=== PATIENT | female | born 1990 | race Asian ===

== ENCOUNTER 2021-12-12 17:45 | Inpatient (IN) ==
[2021-12-12] MEDS ORDERED: Promethazine INJ(RESTRICTED) 25 MG/ML 1 ml VIAL IV PRN (20:05)
[2021-12-12] MEDS ORDERED: Buffered Lidocaine 1% SYRIN 1 ml INTRADERM ONE (20:05)
[2021-12-12] MEDS ORDERED: Lactated Ringers 1000 ml BAG 1,000 ML IV ONE (20:05)
[2021-12-12] MEDS ORDERED: Nalbuphine 10 MG/ML 1 ML VIAL IV PRN (20:05)
[2021-12-12] MEDS ORDERED: Dinoprostone 10 MG VAG.SUPP VAGINAL ONE (20:05)
[2021-12-12] MEDS ORDERED: Lidocaine 2% JELLY 6 ML Topical TOPICAL ONE (20:08)
[2021-12-12 21:26] LABS: Urine Benzodiazepine Screen None Detected (None Detect); Urine Cannabinoids Screen None Detected (None Detect); Urine Opiates Screen None Detected (None Detect)
[2021-12-13] MEDS ORDERED: Nalbuphine 10 MG/ML 1 ML VIAL IV ONE (05:19)
[2021-12-13] MEDS ORDERED: Promethazine INJ(RESTRICTED) 25 MG/ML 1 ml VIAL IV ONE (05:19)
[2021-12-13 05:41] LABS: ABS Lymphocytes 2.7 10^3/ul (1.0-4.8); ABS Monocytes 0.8 10^3/ul (0-0.8); ABS Neutrophils 7.1 10^3/ul (1.5-7.7); Eosinophil % 0.4 %; Hematocrit 40 % (35-47); Hemoglobin 13.5 g/dL (12.0-16.0); Lymphocyte % 24.9 %; Mean Corpuscular HGB Conc 34 g/dL (31-36); Mean Corpuscular Hemoglobin 32 pg (27-31); Mean Corpuscular Volume 94 fL (80-97); Mean Platelet Volume 8.9 fL (7.4-10.4); Nucleated Red Blood Cells % 0.1; Platelet Count 227 10^3/uL (150-450); Red Blood Count 4.27 10^6 /uL (3.70-4.87); Red Cell Distribution Width 14 % (10-15); White Blood Count 10.7 10^3/uL (3.5-10.8)
[2021-12-13] MEDS ORDERED: Lidocaine 2% JELLY 6 ML Topical TOPICAL PRN (09:41)
[2021-12-13] MEDS ORDERED: Oxytocin in LR 20,000 MILLI.UNIT/1,000 ML BAG IV SCH (11:30)
[2021-12-13] MEDS ORDERED: Lidocaine/Epinephrin 1.5%/200 5 ML AMP INJ ONE (12:40)
[2021-12-13] MEDS ORDERED: OBEPIDURAL (200 ML) 200 ML EPIDURAL ONE (12:40)
[2021-12-13] MEDS: Lactated Ringers 1000 ml BAG 1,000 ML IV SCH ×2 (13:01→15:32)
[2021-12-13] MEDS: OBEPIDURAL (200 ML) 200 ML EPIDURAL SCH (13:21)
[2021-12-13] MEDS ORDERED: Sodium Citrate/Citric Acid LIQ 15 ML UDC PO PRN (14:01)
[2021-12-13] MEDS ORDERED: Lactated Ringers 1000 ml BAG 1,000 ML IV ONE (14:01)
[2021-12-13] MEDS ORDERED: Phenylephrine 40 mcg/mL 10mL (400mcg) SYRINGE IV PUSH PRN ×2 (14:01)
[2021-12-13] MEDS ORDERED: Lactated Ringers 1000 ml BAG 1,000 ML IV SCH (15:00)
[2021-12-13 15:01] LABS: Urine Appearance Clear; Urine Bilirubin Negative (Negative); Urine Blood 2+ (Negative); Urine Color Yellow; Urine Glucose Negative (Negative); Urine Ketones Trace (Negative); Urine Nitrite Negative (Negative); Urine Protein Negative (Negative); Urine Specific Gravity 1.016 (1.002-1.030); Urine Urobilinogen Negative (Negative)
[2021-12-13 16:13] LABS: Urine Bacteria Absent (Absent); Urine Red Blood Cell 3+(>10/hpf) (Absent); Urine Squamous Epithelial Cell Present (Absent); Urine White Blood Cell Trace(0-5/hpf) (Absent)
[2021-12-14 04:23] LABS: ABS Lymphocytes 1.4 10^3/ul (1.0-4.8); ABS Monocytes 1.2 10^3/ul (0-0.8); ABS Neutrophils 11.1 10^3/ul (1.5-7.7); Hematocrit 39 % (35-47); Hemoglobin 13.1 g/dL (12.0-16.0); Mean Corpuscular HGB Conc 33 g/dL (31-36); Mean Corpuscular Hemoglobin 31 pg (27-31); Mean Corpuscular Volume 94 fL (80-97); Mean Platelet Volume 9.3 fL (7.4-10.4); Platelet Count 160 10^3/uL (150-450); Red Cell Distribution Width 14 % (10-15); White Blood Count 13.7 10^3/uL (3.5-10.8)
[2021-12-14] MEDS: OBEPIDURAL (200 ML) 200 ML EPIDURAL SCH (05:49)
[2021-12-14] MEDS ORDERED: Dibucaine 1% OINT 28.35 GM TUBE PR PRN (07:42)
[2021-12-14] MEDS ORDERED: Witch Hazel PAD JAR TOPICAL PRN (07:42)
[2021-12-14] MEDS ORDERED: Oxytocin in LR 20,000 MILLI.UNIT/1,000 ML BAG IV SCH (07:45)
[2021-12-14] MEDS ORDERED: Lactated Ringers 1000 ml BAG 1,000 ML IV SCH (08:00)
[2021-12-14] MEDS ORDERED: Lidocaine 1% VIAL 10 MG/ML VIAL ONE (12:51)
[2021-12-15 07:10] LABS: ABS Eosinophils 0.1 10^3/ul (0-0.6); ABS Lymphocytes 2.6 10^3/ul (1.0-4.8); ABS Neutrophils 10.7 10^3/ul (1.5-7.7); Eosinophil % 0.5 %; Hematocrit 30 % (35-47); Hemoglobin 10.2 g/dL (12.0-16.0); Lymphocyte % 18.1 %; Mean Corpuscular HGB Conc 34 g/dL (31-36); Mean Corpuscular Hemoglobin 32 pg (27-31); Mean Corpuscular Volume 94 fL (80-97); Platelet Count 189 10^3/uL (150-450); Red Cell Distribution Width 14 % (10-15); White Blood Count 14.4 10^3/uL (3.5-10.8)
[2021-12-15] MEDS ORDERED: Influenza vaccine *QUAD* *2022-23* 0.5 ML SYRINGE IM ONE (09:00)
[2021-12-16 09:15] VITALS: BP 111/83
== END 2021-12-16 14:10 | disposition home or self-care (01) | DRG 806 ==
LOC: MCHOBOUT 17:45 → MCHOB 18:38
PROVIDERS: ADMIT Midwife; ATTEND Midwife